=== PATIENT | female | born 1970 | race Caucasian/White ===

== ENCOUNTER 2017-09-08 19:52 | Emergency (ER) | payer OTHER ==
[2017-09-08 19:53] VITALS: BMI 25.0
[2017-09-08] MEDS ORDERED: Oxycodone/Acetaminophen 5/325 mg Tab PO STA (20:53)
[2017-09-08] MEDS ORDERED: Oxycodone/Acetaminophen 5/325 mg Tab ONE (21:04)
--- NOTE | 2017-09-08 21:35 | C.PDOC ---
History Of Present Illness 46 y/o female presents to the ED complaining of atraumatic right shoulder pain for 1 week. Taking [id number] Advil and Tylenol at home with minimal relief. Patient states today the pain worsened, particularly with movement, prompting her to come in for evaluation. Denies any numbness, tingling, or weakness. Time Seen by Provider: 09/08/17 20:10 Chief Complaint (Nursing): Upper Extremity Problem/Injury History Per: Patient History/Exam Limitations: no limitations Onset/Duration Of Symptoms: Days (x 1 week) Current Symptoms Are (Timing): Still Present Exacerbating Factor(s): Movement Past Medical History Reviewed: Historical Data, Nursing Documentation, Vital Signs Vital Signs: Last Vital Signs Temp 98 F 09/08/17 22:17 Pulse 70 09/08/17 22:17 Resp 14 09/08/17 22:17 BP 110/70 09/08/17 22:17 Pulse Ox 100 09/09/17 01:14 - Medical History PMH: No Chronic Diseases Denies: Chronic Kidney Disease Other Surgeries: Tubal ligation Family History: States: No Known Family Hx - Social History Hx Tobacco Use: No Hx Alcohol Use: No Hx Substance Use: No - Immunization History Hx Tetanus Toxoid Vaccination: No Hx Influenza Vaccination: No Hx Pneumococcal Vaccination: No Review Of Systems Except As Marked, All Systems Reviewed And Found Negative. Musculoskeletal: Positive for: Shoulder Pain (right) Neurological: Negative for: Weakness, Numbness (and tingling) Physical Exam - Physical Exam Appears: Non-toxic, No Acute Distress Skin: Normal Color, Warm, Dry Head: Atraumatic, Normacephalic Eye(s): bilateral: Normal Inspection, PERRL, EOMI Nose: Normal Neck: Normal ROM, Supple Chest: Symmetrical, No Tenderness Respiratory: No Accessory Muscle Use, No Other (respiratory distress) Extremity: Tenderness (to the anterior right shoulder and deltoid, (+) pain with ROM of shoulder), Capillary Refill (normal), No Deformity, No Swelling (or erythema, warmth) Extremity: Bilateral: Atraumatic, Normal Color And Temperature Pulses: Left Radial: Normal, Right Radial: Normal Neurological/Psych: Oriented x3, Normal Speech, Normal Motor, Normal Sensation Gait: Steady ED Course And Treatment O2 Sat by Pulse Oximetry: 100 (RA) Pulse Ox Interpretation: Normal - Other Rad X-ray right shoulder X-Ray: Interpreted by Me, Viewed By Me Interpretation: No fracture, no dislocation Progress Note: X-ray of right shoulder ordered. Patient given Toradol IM and Percocet PO. X-ray, read by me, is negative. On reevaluation, patient reports pain improved. Sling placed by CP for comfort and support. Patient advised to follow up with PMD/the clinic Disposition Counseled Patient/Family Regarding: Studies Performed, Diagnosis, Need For Followup, Rx Given - Disposition Referrals: [facility] at [facility] [Outside] Disposition: HOME/ ROUTINE Disposition Time: 21:32 Condition: STABLE Additional Instructions: Please follow up in clinic Take meds as directed Use sling for support Return to ER if worse Prescriptions: Cyclobenzaprine [Cyclobenzaprine HCl] 10 mg PO HS #10 tab Ibuprofen [Motrin] 600 mg PO Q6H #30 tab Instructions: Shoulder Pain (DC) Forms: [employer] (Ivorian) Print Language: JAPANESE - POA Present On Arrival: None - Clinical Impression Clinical Impression: Shoulder pain, right - PA / PEDIATRIC INTENSIVE PHYSICIAN / Resident Statement MD/DO has reviewed & agrees with the documentation as recorded. - Scribe Statement The provider has reviewed the documentation as recorded by the Scribe (Rosario Hammonds) All medical record entries made by the Scribe were at my direction and personally dictated by me. I have reviewed the chart and agree that the record accurately reflects my personal performance of the history, physical exam, medical decision making, and the department course for this patient. I have also personally directed, reviewed, and agree with the discharge instructions and disposition.
[2017-09-08 22:18] VITALS: BP 110/70; PULSE 70; RESP 14; TEMP 98
[2017-09-09 01:10] VITALS: O2SAT 100
--- NOTE | 2017-09-09 11:19 | RAD ---
PROCEDURE: Radiographs of the Right Shoulder HISTORY: Pain. COMPARISON: No prior study available for comparison however correlation made with chest radiograph dated 05/01/2014 which also partially imaged the right shoulder and single projection FINDINGS: BONES: No evidence of acute displaced fracture nor dislocation. The osseous structures intact. JOINTS: Glenohumeral and acromioclavicular joints relatively preserved. No significant osteoarthritis. SOFT TISSUES: There is a small calcific density within the soft tissues adjacent to the greater tuberosity humeral heads likely representing calcific tendinitis or bursitis. OTHER FINDINGS: None. IMPRESSION: No acute fractures. Findings consistent with calcific tendinitis or bursitis
== END 2017-09-08 22:18 | disposition home or self-care (01) ==
LOC: C.ER 19:52
DX: M25.511 Pain in right shoulder (principal)
CPT/HCPCS: 73030; 96372; 99284; J1885

== ENCOUNTER 2018-02-01 11:34 | Emergency (ER) | payer OTHER ==
[2018-02-01 11:35] VITALS: BMI 25.0
[2018-02-01 11:46] VITALS: O2SAT 100
--- NOTE | 2018-02-01 13:11 | C.PDOC ---
History Of Present Illness 47 year old female presents to the emergency department with complaints of right index finger pain. Patient states that two months ago she overextended her right index finger at home and has had the pain since then. She reports that the pain radiates to her wrist area and upper arm with movement. She states that she has not been evaluated for her injury since sustaining it. Time Seen by Provider: 02/01/18 11:50 Chief Complaint (Nursing): Upper Extremity Problem/Injury History Per: Patient History/Exam Limitations: no limitations Onset/Duration Of Symptoms: Other (two months) Current Symptoms Are (Timing): Still Present Quality: "Pain" Exacerbating Factor(s): Movement Past Medical History Reviewed: Historical Data, Nursing Documentation, Vital Signs Vital Signs: Last Vital Signs Temp 98.4 F 02/01/18 13:46 Pulse 72 02/01/18 13:46 Resp 16 02/01/18 13:46 BP 110/68 02/01/18 13:46 Pulse Ox 100 02/01/18 14:01 - Medical History PMH: No Chronic Diseases Denies: Chronic Kidney Disease Surgical History: No Surg Hx Family History: States: No Known Family Hx - Social History Hx Tobacco Use: No Hx Alcohol Use: No Hx Substance Use: No - Immunization History Hx Tetanus Toxoid Vaccination: No Hx Influenza Vaccination: No Hx Pneumococcal Vaccination: No Review Of Systems Except As Marked, All Systems Reviewed And Found Negative. Musculoskeletal: Positive for: Arm Pain (right arm, radiating from right index finger), Hand Pain (right index finger) Physical Exam - Physical Exam Appears: Non-toxic, No Acute Distress Skin: Warm, Dry, No Other (erythema at right index finger) Head: Atraumatic, Normacephalic Eye(s): bilateral: Normal Inspection Neck: Normal, Supple Extremity: Normal ROM (at right arm), Tenderness (mild tenderness to palpation at the right index finger), No Deformity, Swelling (mild swelling of the PIP joint at the right index finger) Neurological/Psych: Oriented x3, Normal Speech, Normal Cognition ED Course And Treatment O2 Sat by Pulse Oximetry: 100 (RA) Pulse Ox Interpretation: Normal - Other Rad XR Hand Right 2nd Digit X-Ray: Viewed By Me, Read By Radiologist Interpretation: Accession No. : [id number]. Patient Name / ID : MAINE GUILLERMO / [id number]. Exam Date : 02/01/2018 12:57:33 ( Approved ). Study Comment : Sex / Age : F / 47Y. Creator : Luis Enrique Farias MD. Dictator : Luis Enrique Farias MD. Dean Of Men : Meat Carrier : Luis Enrique Farias MD. Approver2 : Report Date : 02/01/2018 15:20:34. My Comment : . Right hand 2nd digit three views. History: Pain. Comparison: None available. Findings: No evidence for acute displaced fracture or dislocation of the right 2nd digit. On the oblique view, transverse lucency through the ulnar sided cortex of the 2nd proximal phalanx likely represents a prominent vascular groove. Punctate radiopaque density adjacent to the ulnar aspect of the 4th proximal phalanx head may represent an accessory ossicle versus small chronic avulsion injury. Clinical correlation. Additional small ossific density at the base of the 1st distal phalanx may represent accessory ossicle. Clinical correlation. Impression: No evidence for acute displaced fracture or dislocation of the right 2nd digit. On the oblique view, transverse lucency through the ulnar sided cortex of the 2nd proximal phalanx likely represents a prominent vascular groove. Punctate radiopaque density adjacent to the ulnar aspect of the 4th proximal phalanx head may represent an accessory ossicle versus small chronic avulsion injury. Clinical correlation. Additional small ossific density at the base of the 1st distal phalanx may represent accessory ossicle. Clinical correlation. If pain persists, consider correlation with MRI. Progress Note: Plan: XR Right Hand Second Digit. Finger splint placed, patient instructed to follow-up with hand specialist. Disposition - Disposition Referrals: [facility] at [facility] [Outside] Disposition: HOME/ ROUTINE Disposition Time: 13:08 Condition: STABLE Additional Instructions: Follow up with Hand specialist and clinic within 2-3 days. Return to ED if feel worse. Prescriptions: Ibuprofen [Motrin Tab] 600 mg PO Q8 #30 tab Instructions: Common Finger Injuries (DC) Forms: [employer] (Croatian) Print Language: NEPALI - Clinical Impression Clinical Impression: Finger pain, right - Scribe Statement The provider has reviewed the documentation as recorded by the Scribe (Edilberto Marcelo) All medical record entries made by the Scribe were at my direction and personally dictated by me. I have reviewed the chart and agree that the record accurately reflects my personal performance of the history, physical exam, medical decision making, and the department course for this patient. I have also personally directed, reviewed, and agree with the discharge instructions and disposition.
[2018-02-01 13:47] VITALS: BP 110/68; PULSE 72; RESP 16; TEMP 98.4
--- NOTE | 2018-02-01 15:22 | RAD ---
Right hand 2nd digit three views History: Pain. Comparison: None available. Findings: No evidence for acute displaced fracture or dislocation of the right 2nd digit. On the oblique view, transverse lucency through the ulnar sided cortex of the 2nd proximal phalanx likely represents a prominent vascular groove. Punctate radiopaque density adjacent to the ulnar aspect of the 4th proximal phalanx head may represent an accessory ossicle versus small chronic avulsion injury. Clinical correlation. Additional small ossific density at the base of the 1st distal phalanx may represent accessory ossicle. Clinical correlation. Impression: No evidence for acute displaced fracture or dislocation of the right 2nd digit. On the oblique view, transverse lucency through the ulnar sided cortex of the 2nd proximal phalanx likely represents a prominent vascular groove. Punctate radiopaque density adjacent to the ulnar aspect of the 4th proximal phalanx head may represent an accessory ossicle versus small chronic avulsion injury. Clinical correlation. Additional small ossific density at the base of the 1st distal phalanx may represent accessory ossicle. Clinical correlation. If pain persists, consider correlation with MRI.
== END 2018-02-01 13:47 | disposition home or self-care (01) ==
LOC: C.ER 11:34
DX: M79.644 Pain in right finger(s) (principal)